=== PATIENT | female | born 1990 | race Hispanic/Latino ===

== ENCOUNTER 2017-04-18 09:06 | Emergency (ER) | payer OTHER ==
[~2017-04-18] VITALS: Ht 162.6 cm; Wt 52.3 kg
[~2017-04-18 09:06] MED LIST: CLON0.1T PO; ONDA8TAB10 PO
[2017-04-18 09:11] VITALS: BP 126/83; PULSE 99; RESP 12; O2SAT 99
--- NOTE | 2017-04-18 09:11 | ED.REPORT ---
HPI-Abd Pain F Under 42 Date of Service Apr 18, 2017 ED Provider: Darnell Doll MD A 26 year old female with a history of cosmetic surgery 10 days ago presents to the ED complaining of a possible UTI. The pt woke last night with dysuria, and noticed a small amount of blood when she wiped. This is accompanied by urinary urgency and frequency. The pt denies fever, nausea, vomiting or rash. She called her PCP but was unable to get an appointment in the near future. The pt has not been on antibiotics recently but was under general anesthetic for her surgery and thinks that a catheter may have been placed. She has had a UTI before but was asymptomatic. Nursing Notes Stated Complaint: POSSIBLE BLOOD IN URINE Chief Complaint: Female Abdominal Pain Nursing Notes Reviewed: Yes ([place] not reconciled) Allergies: Coded Allergies: No Known Allergies (Unverified Allergy, Unknown, 05/13/15) Scheduled Sulfamethoxazole/Trimeth 800-160 mg (Bactrim DS) 1 Each Tablet 1 TABLET PO BID Scheduled PRN Clonidine (Clonidine) 0.1 Mg Tablet 0.1 MG PO BID PRN PRN Withdrawal Symptoms Ondansetron ODT (Ondansetron ODT) 8 Mg Tab.rapdis 8 MG PO Q4H PRN PRN For Nausea Phenazopyridine (Phenazopyridine) 200 Mg Tablet 200 MG PO TID PRN PRN dysuria General Time Seen by MD: 09:10 Chief Complaint Other (Possible UTI) Hx Obtained From: Patient Arrived By: Walk-in Sudden in Onset?: Yes Onset Occurred: 5 - 8 hours ago Symptom Duration: Since onset Recent Healthcare: Recent doctor visit Similar Sx Previous: No Past Medical History Past Medical History none reported Past Surgical History Lumbar spinal fusion Cosmetic surgery Smoking History Never Smoker Social History Alcohol Use: Denies alcohol use Drug Use: Denies drug use Other Social History: Occupation no work or school Ambulatory Status Independent Review of Systems Constitutional: Denies: Fever Respiratory: Denies: Non-productive cough, Shortness of breath Cardiovascular: Denies: Chest pain GI: Denies: Abdominal pain, Nausea, Vomiting Female: Reports: Dysuria, Hematuria, Urinary frequency, Urinary urgency Musculoskeletal: Denies: Back pain, Neck pain Complete sys rev & neg: except as marked. Skin: Denies Rash Physical Exam Initial Vital Signs Vital Signs (First) Date Time Temp Pulse Resp B/P Pulse Ox O2 Delivery O2 Flow Rate FiO2 04/18/17 09:11 37.0 99 12 126/83 99 04/18/17 10:06 Room Air Initial VS: Reviewed, Unavailable (none on chart, ordered) General/Constitutional: Awake, Alert Respiratory / Chest: Atraumatic, Breath sounds NL, Breath sounds = bilat, No respiratory distress Cardiovascular: Heart rate NL, Regular rhythm, Heart sounds NL Abdomen: Atraumatic, Soft, Non-tender Back: Atraumatic, Full range of motion Head / Eyes: Atraumatic, Normocephalic, PERRL, EOMI ENT: Atraumatic, Airway patent, Mucous membranes moist Skin: Atraumatic, Color NL, No rash, Warm, Dry Neurologic: Oriented X3, Speech NL, No motor deficits, No sensory deficits Neck: Atraumatic, Supple, Full range of motion Upper Extremity / MS: Atraumatic, Full range of motion Lower Extremity / Pelvis / MS: Atraumatic, Full range of motion Psychiatric: Affect NL, Mood NL Interpretation & Diagnostics Lab Results Interpretation Test 04/18/17 09:33 Urine Color Yellow (YELLOW) Urine Appearance Slightly cloudy Urine pH 6.0 (5.0-8.0) Urine Specific [place] 1.025 (1.003-1.035) Urine Protein 100mg/dL (NEG,TRACE) Urine Glucose (UA) Negativemg/dL (NEGATIVE) Urine Ketones Tracemg/dL (NEGATIVE) Urine Occult Blood Trace (NEGATIVE) Urine Nitrite Negative (NEGATIVE) Urine Bilirubin Negative (NEGATIVE) Urine Urobilinogen Normalmg/dL (NORMAL) Urine Leukocyte Esterase Large (NEGATIVE) Urine RBC 11-50/hpf (0-2) Urine WBC >50/hpf (0-5) Urine Epithelial Cells Moderate/hpf (NONE-MOD) Urine Crystals None seen (NONE SEEN) Urine Bacteria Moderate/hpf (NONE-FEW) Urine Hyaline Casts None/lpf (NONE) Urine Granular Casts None seen (NONE SEEN) Urine Waxy Casts None seen (NONE SEEN) Urine Red Blood Cell Casts None seen (NONE SEEN) Urine White Blood Cell Casts None seen (NONE SEEN) Urine Mucus Present (None Seen) Urine Trichomonas None seen (NONE SEEN) Urine Yeast None (NONE SEEN) Urinalysis Comment None Urine Culture Reflexed Indicated Lab Results Interpretation: UA positive for infection, culture pending negative Re-Eval/Medical Decision Med Decision/Clinical Course This is a healthy 26-year-old male presents to one-day history of dysuria, urgency, frequency, and trace intermittent hematuria. Patient denies fever, chills, back pain, nausea or vomiting. She denies a chance of being , she has no additional complaints. Had a UTI with trace amount of blood, she notes when she wiped only. He is afebrile, nontoxic, has no abdominal or CVA tenderness. She is name, he was positive for infection. She can started on Bactrim 5 day course. Rputine and return cough precautions reviewed, pyridium is being provided for symptomatic management. Source of Hx: Old records Re-Evaluation/Progress : Time of Eval: 09:49 Patient Status: Condition improved Re-Evaluation/Progress Note: Pt rechecked, who is resting. Lab results diagnosis and plan for discharge are discussed. The pt understands and agrees with the plan. All questions are addressed at this time. Differential Diagnosis: Positive: Urinary tract infection, Negative: Ectopic preg ruptured, Ectopic , Mesenteric adenitis, Mesenteric ischemia, Myocardial infarction, Peritonitis, Porphyria, Pyelonephritis, Stab wound abdomen Counseled Regarding: Diagnosis, Lab results, Need for follow-up, When/why to return to ED Discharge & Departure Primary Impression: Urinary tract infection Urinary tract infection type: site unspecified Hematuria presence: with hematuria Qualified Code: N39.0 - Urinary tract infection, site not specified Disposition: Home Discharge Condition All VS Reviewed: Yes Condition: Stable Additional Instructions: 1. You have a urinary tract infection. 2. Take the antibiotic trimethoprim/sulfa DS 1 tab twice a day for 5 days. 3. Take phenazopyridine 200mg three times a day as needed for discomfort with urination (note: this medication causes the urine to turn orange) 4. Symptoms should be resolving rapidly after starting antibiotics (e.g. ~1-2 days, but finish all the antibiotics) 5. Return if new or worsening symptoms. 6. We have sent the urine off for "urine culture" which takes approximately 2 days for results, this helps verify you have been started on the proper antibiotic. You can call us at [phone] for results. Referrals: OTHER,PHYSICIAN (PCP) (Family) Scribe Attestation Portions of this note were transcribed by Ilya Vences. I, Dr. Doll personally performed the history, physical exam and medical decision-making; I reviewed and confirmed the accuracy of the information in the transcribed note. Darnell Doll MD Apr 18, 2017 09:11 ILYA VENCES Apr 18, 2017 09:50
[2017-04-18] MEDS ORDERED: Phenazopyridine 97.5 mg Tablet PO ONE (09:45)
[2017-04-18] MEDS ORDERED: Trimethoprim-Sulfa 160 mg-800 mg Tablet PO ONE (09:45)
[2017-04-18] MEDS ORDERED: SULF1TAB7 PO (09:47)
[2017-04-18] MEDS ORDERED: PHEN-777 PO (09:47)
[2017-04-18 09:53] LABS: APPEARANCE,URINE SLIGHTLY CLOUDY (CLEAR,HAZY); COLOR,URINE YELLOW (YELLOW); OCCULT BLOOD,URINE TRACE (NEGATIVE)
[2017-04-18 09:59] LABS: UROBILINOGEN,URINE NORMAL (NORMAL)
[2017-04-18 10:06] VITALS: BP 99/71; PULSE 85; RESP 14; O2SAT 98
[2017-04-20] MEDS ORDERED: CEPH500C PO (09:34)
== END 2017-04-18 10:08 | disposition home or self-care (01) ==
LOC: SED 09:06
DX: N39.0 Urinary tract infection, site not specified (principal); B96.20 Unspecified Escherichia coli [E. coli] as the cause of diseases classified elsewhere